=== PATIENT | male | born 1955 | race Two or more races ===

== ENCOUNTER 2023-04-19 20:44 | Emergency (ER) | payer MEDICAID, OTHER ==
[~2023-04-19] VITALS: Ht 165.1 cm; Wt 107.2 kg
[2023-04-19 20:53] VITALS: BP 168/97; PULSE 90; RESP 17; O2SAT 94
[2023-04-19] MEDS ORDERED: HYDR4CRE35 PR (22:52)
== END 2023-04-19 23:10 | disposition home or self-care (01) ==
LOC: ER 20:44 → EDBD 20:44 → ER 23:10
DX: K64.4 Residual hemorrhoidal skin tags (principal)

== ENCOUNTER 2024-01-10 04:35 | Inpatient (IN) | payer MEDICAID ==
[~2024-01-10] VITALS: Ht 165.1 cm; Wt 99.6 kg
[~2024-01-10 04:35] MED LIST: HYDR4CRE35 PR
[2024-01-10 05:20] LABS: Basophils # (auto) 0 10 ^3/uL (0-0.2); Basophils % (auto) 0.3 % (0.0-2.0); Eosinophils # (auto) 0 10 ^3/uL (0-0.8); Eosinophils % (auto) 0.2 % (0.0-7.0); Hematocrit 46.3 % (41.0-53.0); Lymphocytes # (auto) 1.1 10 ^3/uL (0.4-5.4); Lymphocytes % (auto) 12.5 % (10.0-50.0); Mean Corpuscular Hemoglobin 31.4 pg (28.0-32.0); Mean Corpuscular Hgb Conc. 34.5 g/dL (32.0-36.0); Monocytes # (auto) 0.4 10 ^3/uL (0-1.3); Monocytes % (auto) 4.2 % (0.0-12.0); Neutrophils # (auto) 7.3 10 ^3/uL (1.6-8.6); Neutrophils % (auto) 82.8 % (37.0-80.0); Platelet Count (auto) 235 10^3/uL (140-450); Red Blood Cells 5.08 10^6/uL (4.5-5.90); Red Cell Distribution Width 13.7 % (11.8-14.3); White Blood Cell 8.8 10^3/uL (4.4-10.8)
[2024-01-10 05:32] LABS: Alanine Aminotransferase 26 U/L (7-40); Albumin 4.2 g/dL (3.2-4.8); Alkaline Phosphatase 95 U/L (46-116); Anion Gap 6 (5-15); Aspartate Aminotransferase 12 U/L (13-40); BUN/Creatinine Ratio 12.5 (10.0-20.0); Bilirubin, Total 0.6 mg/dL (0.2-1.0); Blood Urea Nitrogen 13 mg/dL (9-23); Calcium 9.2 mg/dL (8.7-10.4); Carbon Dioxide 25 mmol/L (20-30); Chloride 107 mmol/L (98-107); Glucose 154 mg/dL (74-106); Potassium 3.5 mmol/L (3.5-5.1); Sodium 138 mmol/L (136-145); Total Protein 7.5 g/dL (5.7-8.2)
[2024-01-10] MEDS: cloNIDine HCL 0.1 MG TAB PO ONE (07:49)
[2024-01-10] MEDS ORDERED: HYDROmorphone HCL 2 MG/ML VL/or syr IV PRN (15:00)
[2024-01-10] MEDS ORDERED: MORPHINE SULFATE INJ 2 MG/ml SYRG IV PRN (15:00)
[2024-01-10] MEDS ORDERED: ACETAMINOPHEN 325 MG TAB PO PRN (15:00)
[2024-01-10] MEDS ORDERED: NITROGLYCERIN 0.4 MG SL TAB SL PRN (15:00)
[2024-01-10] MEDS ORDERED: ONDANSETRON HCL 4 MG/2 ML VIAL IV PRN (15:00)
[2024-01-10] MEDS ORDERED: HYDROcodone-ACET 5/325MG TAB PO PRN (15:00)
[2024-01-10] MEDS ORDERED: DOCUSATE SOD 100 MG CAP PO PRN (15:00)
[2024-01-10 17:30] VITALS: BP 170/95; RESP 17; TEMP 98.3; O2SAT 92
[2024-01-10 17:37] VITALS: BP 170/95; PULSE 69; RESP 17; TEMP 98.3; O2SAT 97
[2024-01-10] MEDS: hydrALAZINE HCL 20 MG/ML VL IV PRN (17:57)
[2024-01-10] MEDS ORDERED: ASPirin 81 mg TAB PO ONE (18:00)
[2024-01-10 20:00] VITALS: PULSE 61
[2024-01-10 21:00] VITALS: BP 139/82; PULSE 69; RESP 21; TEMP 99.3; O2SAT 97
[2024-01-10] MEDS: SODIUM CHLOR 0.9% PF (SALINE LOCK) 10ML VIAL/SYR IV SCH (21:57)
[2024-01-11 07:17] LABS: Basophils # (auto) 0 10 ^3/uL (0-0.2); Basophils % (auto) 0.2 % (0.0-2.0); Eosinophils # (auto) 0 10 ^3/uL (0-0.8); Eosinophils % (auto) 0.4 % (0.0-7.0); Hematocrit 43.9 % (41.0-53.0); Hemoglobin 15.3 g/dL (13.5-17.5); Lymphocytes # (auto) 1.4 10 ^3/uL (0.4-5.4); Lymphocytes % (auto) 14.4 % (10.0-50.0); Mean Corpuscular Hemoglobin 31.8 pg (28.0-32.0); Mean Corpuscular Hgb Conc. 34.8 g/dL (32.0-36.0); Mean Corpuscular Volume 91.4 fL (80.0-100.0); Monocytes # (auto) 0.6 10 ^3/uL (0-1.3); Monocytes % (auto) 6.6 % (0.0-12.0); Neutrophils # (auto) 7.5 10 ^3/uL (1.6-8.6); Neutrophils % (auto) 78.4 % (37.0-80.0); Nucleated Red Blood Cells % 0.1 %; Platelet Count (auto) 230 10^3/uL (140-450); Red Cell Distribution Width 13.6 % (11.8-14.3); White Blood Cell 9.6 10^3/uL (4.4-10.8)
[2024-01-11 07:20] LABS: Alanine Aminotransferase 17 U/L (7-40); Albumin 4.1 g/dL (3.2-4.8); Alkaline Phosphatase 76 U/L (46-116); Anion Gap 6 (5-15); Aspartate Aminotransferase 11 U/L (13-40); BUN/Creatinine Ratio 13.1 (10.0-20.0); Bilirubin, Total 0.8 mg/dL (0.2-1.0); Blood Urea Nitrogen 13 mg/dL (9-23); Carbon Dioxide 25 mmol/L (20-30); Chloride 105 mmol/L (98-107); Glucose 106 mg/dL (74-106); Potassium 3.2 mmol/L (3.5-5.1); Sodium 136 mmol/L (136-145); Total Protein 6.9 g/dL (5.7-8.2)
[2024-01-11 08:00] VITALS: PULSE 73
[2024-01-11 08:40] LABS: Triglycerides 192 mg/dL (< 150)
[2024-01-11 08:41] LABS: LDL Cholesterol 98 mg/dL (< 100)
[2024-01-11 08:42] LABS: Cholesterol 155 mg/dL (< 200); HDL Cholesterol 32 mg/dL (40-59)
[2024-01-11] MEDS: ASPirin 81 mg TAB PO SCH (09:05)
[2024-01-11] MEDS: LISINOPRIL 20 MG TAB PO SCH (09:05)
[2024-01-11] MEDS: ENOXAPARIN SOD 40 MG/0.4 ML SYRINGE SC SCH (09:05)
[2024-01-11] MEDS: hydroCHLOROthiazide 25 MG TAB PO SCH (09:06)
[2024-01-11 09:42] VITALS: BP 148/89; PULSE 74; RESP 18; TEMP 98.4; O2SAT 95
[2024-01-11] MEDS: POTASSIUM CHL 20 Meq TABLET PO ONE (11:04)
[2024-01-11 15:00] VITALS: BP 149/92; PULSE 68; RESP 18; TEMP 98.3; O2SAT 95
[2024-01-11 17:22] VITALS: BP 139/79; PULSE 81; RESP 17; TEMP 98.3; O2SAT 95
[2024-01-11 20:00] VITALS: PULSE 93; PULSE 95; RESP 16; O2SAT 95
[2024-01-11 21:00] VITALS: BP 127/80; PULSE 95; RESP 16; TEMP 98.3; O2SAT 95
[2024-01-12] VITALS (9 sets, daily range): BP systolic 116–135; BP diastolic 72–89; PULSE 77–87; RESP 16–17; TEMP 36.4; O2SAT 90–95
[2024-01-12 05:52] LABS: Basophils # (auto) 0 10 ^3/uL (0-0.2); Basophils % (auto) 0.3 % (0.0-2.0); Eosinophils # (auto) 0.1 10 ^3/uL (0-0.8); Hematocrit 46.2 % (41.0-53.0); Hemoglobin 16.2 g/dL (13.5-17.5); Lymphocytes # (auto) 1.7 10 ^3/uL (0.4-5.4); Lymphocytes % (auto) 16.6 % (10.0-50.0); Mean Corpuscular Hemoglobin 32.1 pg (28.0-32.0); Mean Corpuscular Volume 91.6 fL (80.0-100.0); Monocytes # (auto) 0.7 10 ^3/uL (0-1.3); Monocytes % (auto) 6.7 % (0.0-12.0); Neutrophils # (auto) 7.9 10 ^3/uL (1.6-8.6); Neutrophils % (auto) 75.4 % (37.0-80.0); Platelet Count (auto) 243 10^3/uL (140-450); Red Blood Cells 5.05 10^6/uL (4.5-5.90); Red Cell Distribution Width 13.8 % (11.8-14.3); White Blood Cell 10.4 10^3/uL (4.4-10.8)
[2024-01-12 06:05] LABS: Alanine Aminotransferase 18 U/L (7-40); Albumin 4.3 g/dL (3.2-4.8); Alkaline Phosphatase 86 U/L (46-116); Anion Gap 7 (5-15); Aspartate Aminotransferase 10 U/L (13-40); BUN/Creatinine Ratio 12.4 (10.0-20.0); Bilirubin, Total 0.7 mg/dL (0.2-1.0); Blood Urea Nitrogen 14 mg/dL (9-23); Carbon Dioxide 27 mmol/L (20-30); Chloride 103 mmol/L (98-107); Potassium 3.9 mmol/L (3.5-5.1); Sodium 137 mmol/L (136-145); Total Protein 7.3 g/dL (5.7-8.2)
[2024-01-12 06:13] LABS: Glucose 108 mg/dL (74-106)
[2024-01-12 15:24] LABS: Urine Bacteria FEW /hpf (None Seen); Urine Blood 2+ /uL (Negative); Urine Clarity Turbid (Clear); Urine Color Yellow (Yellow); Urine Mucus FEW (None Seen); Urine Protein, UAD TRACE (Negative); Urine Specific Gravity 1.012 (1.001-1.035); Urine Urobilinogen Normal (Negative); Urine WBC 305 /hpf (0 - 3); Urine WBC Clumps PRESENT /hpf (None Seen); Urine pH 5.5 (5.0-9.0)
[2024-01-12 15:32] LABS: Amphetamine Screen, Urine Neg (NEGATIVE)
[2024-01-12 15:33] LABS: Barbiturate Scree,Urine Neg (NEGATIVE); Benzodiazephine Screen, Urine Neg (NEGATIVE); Cannabinoid Screen, Urine Neg (NEGATIVE); Cocaine Screen, Urine Neg (NEGATIVE); Opiate Scree,Urine Neg (NEGATIVE); Phencyclidine Screen, Urine Neg (NEGATIVE)
[2024-01-12] MEDS ORDERED: CEPH250C PO (16:29)
[2024-01-12] MEDS ORDERED: ACET-1882 PO (16:29)
[2024-01-12] MEDS ORDERED: ASPI-325 PO (16:29)
[2024-01-12] MEDS ORDERED: LISI20TA56 PO (16:29)
[2024-01-12] MEDS ORDERED: HYDR25TA5 PO (16:29)
== END 2024-01-12 18:30 | disposition home or self-care (01) | DRG 194 ==
LOC: ER 04:35 → TELE 14:54 → TELE-EAST 17:19 → TELE-E-ADS 01-11 04:55
PROVIDERS: ADMIT Internal Medicine; ATTEND Internal Medicine
DX: I50.33 Acute on chronic diastolic (congestive) heart failure (principal); E66.9 Obesity, unspecified; I16.0 Hypertensive urgency; N39.0 Urinary tract infection, site not specified; E87.6 Hypokalemia; E78.5 Hyperlipidemia, unspecified; Z85.028 Personal history of other malignant neoplasm of stomach; Z91.199 Patient's noncompliance with other medical treatment and regimen due to unspecified reason; Z68.36 Body mass index [BMI] 36.0-36.9, adult; I20.9 Angina pectoris, unspecified
CPT/HCPCS: 36415; 71045; 76705; 80053; 80061; 80307; 80320; 81001; 83036; 83735; 83880; 84443; 84484; 85025; 93005; 93306; G0378